=== PATIENT | female | born 1935 | race Caucasian/White ===

== ENCOUNTER → 2016-12-01 | Outpatient (CLI) | payer MEDICARE ==
[~2016-12-01] MED LIST: ALBUTEROL17 GM INH; ALPRAZOLAM0.5 MG PO; AMLODIPINE-OLM1 EACH PO; CLIMARA 0.1 MG0.1 MG EXT; ESCITALOPRAM OX10 MG PO; ESOMEPRAZOLE MA40 MG PO; GABAPENTIN300 MG PO; LISINOPRIL20 MG PO; MULTI VITAMIN1 EACH PO; NEURONTIN100 MG PO; ROPINIROLE HC0.25 MG PO; ROPINIROLE HCL0.5 MG PO; TOPROL XL100 MG PO; TRAMADOL HCL50 M1 PO; TRAMADOL HCL50 M2 PO; VESICARE PO; VIVELLE-DO1 PATCH.B2 TD; VOLTAREN75 MG PO
--- NOTE | ~2016-12-01 | MR165 ---
[facility] A Service of [facility] RADIOLOGY TEXT RESULTS PATIENT: GUILLERMO CALHOUN LOCATION: [facility] : 35 UNIT #: [id number] AGE: [address]: Neel Willoughby MD SEX: F ORDER DR: [id number] [facility] [address] [place], [place] [address] [id number] O MR#: [id number] Acc #: [id number] NAME: GUILLERMO CALHOUN. : 1935 SEX: F STUDY DATE/TIME: 12/01/2016 8:22 UNIT: [facility] ROOM: STUDY DESCRIPTION: MR Shoulder Wo Contrast Rt Attending Physician: Neel Willoughby M.D. Referring Physician: Neel Willoughby M.D. Ordering Physician: Neel Willoughby M.D. Primary Care Physician: Sarahy Wray M.D. MRI CENTER REPORT This report is preliminary unless electronic signature is present. EXAM MRI right shoulder, 12/01/2016. COMPARISON STUDIES Right shoulder radiograph, 02/06/2016. HISTORY Order states right shoulder osteoarthritis, evaluate rotator cuff. History sheet states chronic right shoulder pain for 10 years. Injections for approximately 3 months helped the pain. Schedule for surgery in about a week to place a eva in the humerus. Opposite left shoulder humerus surgery 9 years ago. No right shoulder surgery reported. FINDINGS There is minimal acromioclavicular joint arthrosis with superior capsular ligamentous thickening and osteophyte formation. Coracoacromial and coracoclavicular ligaments are intact. Small subcortical cyst in the lateral acromion is noted. There is a minimal subscapularis tendinosis without a tear. Rotator cuff is otherwise intact. The predominant abnormality is advanced glenohumeral arthrosis with bone on bone appearance, extensive grade 4 chondromalacia, subarticular marrow edema, and minimal subarticular cyst formation. There is a minimal effusion without sizable loose body. There is a paralabral cyst along the anteroinferior quadrant, likely due to underlying labral degeneration or tear. There is no marrow lesion, fracture, or muscle atrophy. IMPRESSION 1. Advanced glenohumeral arthrosis detailed above. 2. Rotator cuff demonstrates no tear. There is minimal subscapularis STS. [facility] A Service of [facility] RADIOLOGY TEXT RESULTS PATIENT: GUILLERMO CALHOUN LOCATION: [facility] : 35 UNIT #: [id number] AGE: [address]: Neel Willoughby MD SEX: F ORDER DR: tendinosis. 3. Paralabral cyst anteroinferior glenoid quadrant likely due to the underlying labral tear or degeneration. 4. AC joint arthrosis. Dictated by... Anali Gonzalez M.D. THIS IS AN ELECTRONICALLY VERIFIED REPORT Anali Gonzalez M.D. at 12/02/2016 8:11 AM JORDAN/cheryl TD: 12/01/2016 12:16 JOB #: [id number] MRI CENTER REPORT Page 1 of 1 COPY
[2016-12-01 09:27] LABS: HEMATOCRIT 43.5 % (35.0-45.0); HEMOGLOBIN 14.3 gm/dL (12.0-16.0); MEAN CELL VOLUME 88.5 FL (83-96); MEAN CORPUSCULAR HGB CONC 32.8 g/dL (30-36); MEAN PLATELET VOLUME 7.5 FL (6.5-11.5); RED BLOOD COUNT 4.92 X10e (3.90-5.30); RED CELL DISTRIBUTION WIDTH 14.2 % (11.0-15.5)
[2016-12-01 09:32] LABS: URINE APPEARANCE CLEAR; URINE BILIRUBIN NEG (NEG); URINE BLOOD NEG (NEG); URINE COLOR DK YELLOW; URINE GLUCOSE NEG (NEG); URINE KETONE NEG (NEG); URINE LEUKOCYTE ESTERASE TRACE (NEG); URINE NITRATE NEG (NEG); URINE PROTEIN NEG (NEG); URINE SPECIFIC GRAVITY 1.013 (1.003-1.035)
[2016-12-01 09:35] LABS: CULTURE INDICATED? YES; URINE BACTERIA AUWI 1+ (NEGATIVE); URINE SQUAMOUS EPITHELIAL CELL FEW /[HPF]
[2016-12-01 09:44] LABS: URINE SOURCE CLEAN CATCH
[2016-12-01 10:18] LABS: GLOM FILT RATE Estimated 52.8 mL/min (>60); POTASSIUM 4.3 mmol/L (3.5-5.1)
== END | disposition home or self-care (01) ==
LOC: CMRI 07:46 → CAMB 11:00
PROVIDERS: Orthopaedic Surgery
DX: Z01.818 Encounter for other preprocedural examination (principal); M19.011 Primary osteoarthritis, right shoulder; M75.81 Other shoulder lesions, right shoulder; S43.431A Superior glenoid labrum lesion of right shoulder, initial encounter
CPT/HCPCS: 36415; 73221; 80048; 81003; 85027; 87070; 87086

== ENCOUNTER 2016-12-08 06:12 | Inpatient (IN) | payer MEDICARE ==
--- NOTE | ~2016-12-08 | OR ---
Unit #: [id number] #: [id number] Patient: GUILLERMO MSAT [id number] [address] [place], [place] [address] [id number] I MR#: [id number] NAME: GUILLERMO MAST ROOM: [facility] Date of Procedure: 12/08/2016 Admission Date: 12/08/2016 Surgeon: Neel Willoughby M.D. : 1935 Attending Physician: Neel Willoughby M.D. OPERATIVE REPORT PREOPERATIVE DIAGNOSIS Right shoulder osteoarthritis. POSTOPERATIVE DIAGNOSES 1. Right shoulder osteoarthritis. 2. Right shoulder biceps tenosynovitis. PROCEDURES PERFORMED 1. Right reverse shoulder arthroplasty. 2. Right shoulder biceps tenodesis. IMPLANTS 1. DJO Surgical size 8 press-fit, AltiVate stem with a 32, neutral humeral socket liner. 2. DJO Surgical P2 baseplate with a 32, -4 glenosphere. SYNCHRO ASSEMBLER Amanda Hanson APRN, TOMOGRAPHIC TECH. ANESTHESIA General. ESTIMATED BLOOD LOSS 200 mL. DRAINS Medium Hemovac x1. SPECIMENS Humeral head to Pathology. COMPLICATIONS None apparent. INDICATIONS FOR PROCEDURE Ms. Mast is an 81-year-old female with right shoulder glenohumeral joint osteoarthritis. She has an intact rotator cuff. We have discussed reverse shoulder arthroplasty given her age and history of need for revision of prior arthroplasty on the left to reverse. She would like to avoid any potential for revision shoulder operation. We discussed that a total shoulder may be at risk for rotator cuff failure and need for future reoperation and anticipate that reverse shoulder arthroplasty should last Unit #: [id number] #: [id number] Patient: GUILLERMO MAST her likely her lifetime. She does understand however that she may outlive her prosthesis and she still may require revision at some point in the future. She elected to proceed with a right reverse shoulder arthroplasty. DESCRIPTION OF PROCEDURE The patient was identified in the preoperative holding area. The operative site was marked. A regional anesthetic block was performed. The patient was brought to the operating room and placed supine on the operating table. A general anesthetic was induced. The patient was positioned into the beach-chair position. The right upper extremity was then prepped and draped in sterile fashion. A standard deltopectoral incision was made. Dissection was carried down through the subcutaneous tissues. The cephalic vein was retracted medially with the pectoralis major muscle. The subdeltoid space was developed. The rotator cuff was intact. The biceps tendon sheath was opened. There was proliferative tenosynovium around the biceps and biceps tenodesis was indicated. A biceps tenodesis was performed in a soft tissue fashion utilizing a locking #2 FiberWire suture to the superior border of the pectoralis. The proximal extent of the biceps was excised. The subscapularis was removed in a direct subscapularis peel. The shoulder was then dislocated anteriorly. The humeral head osteophytes were removed with an osteotome and rongeur. A humeral head osteotomy was then performed of an extramedullary cutting guide in 30 degrees of retroversion. The humerus was then subluxed posteriorly. We had easy access to her glenoid without any significant soft tissue releases. The labrum was released and again we had fairly straightforward in on exposure of the scapula. We drilled the centering hole followed by insertion of the reaming tap. We reamed down to bleeding subchondral bone just beneath the subchondral plate. The real baseplate was then inserted and achieved excellent purchase in the scapula. We then placed 4 peripheral locking screws, which included 26 superiorly and inferiorly and 14 anteriorly and posteriorly. The real 32, -4 glenosphere was then inserted. The set screw was secured. The humerus was then brought back into the operative field anteriorly. A freehand ball reaming technique was performed of the proximal humerus. We sized the canal to a size 8. We then opened a size 8 stem. Three suture holes were drilled in the bicipital groove for passage of 3 FiberTape sutures. The stem was then passed down the humeral canal with the sutures looped around the stem. This achieved good press-fit in the humerus. We trialed a 32, neutral humeral socket liner and were satisfied with this. The real polyethylene liner was then impacted in place and the shoulder was reduced. The 3 FiberTape sutures were then passed through the subscapularis. These were then tied in a simple stitch fashion. A FiberWire Tagging suture which was in the subscapularis was passed back through soft tissue just lateral to the bicipital groove in a [id number] fashion to further reinforce the repair. The lateral humeral offset was in a near anatomic position. The rotator interval was lying in an anatomic position as well and was amenable to closure. We further reinforced the repair by closure of the lateral extent of the rotator interval to the supraspinatus. The arm was taken through range of motion and the shoulder was stable. The wound was irrigated with dilute Betadine solution followed by pulsatile lavage. A drain was placed in the subdeltoid space. The wound was closed in a layered fashion with 0 Vicryl, 2-0 Vicryl, and 4-0 Monocryl. Steri-Strips and sterile dressings were applied. Unit #: [id number] #: [id number] Patient: GUILLERMO MAST DISPOSITION Stable to the recovery room. Dictated by... Emmanuelle Cadena/kerry TD: 12/09/2016 00:06 JOB #: [id number] OPERATIVE REPORT Page 1 of 1 X Neel Willoughby MD X PROCEDURE OPERATIVE NOTE
--- NOTE | ~2016-12-08 | DS ---
Unit #: [id number] #: [id number] Patient: GUILLERMO MAST [id number] [address] [place], [place] [address] [id number] I MR#: [id number] NAME: GUILLERMO MAST. ROOM: 453 Age: 81 Sex: F Admission Date: 12/08/2016 : 1935 Discharge Date: 12/11/2016 Attending Physician: Neel Willoughby M.D. Primary Care Physician: Generic Doctor Not In System DISCHARGE SUMMARY ADMISSION DIAGNOSIS Right shoulder osteoarthritis. DISCHARGE DIAGNOSIS Right shoulder osteoarthritis. SECONDARY DIAGNOSES 1. Chronic obstructive pulmonary disease. 2. Anxiety/depressive disorder. 3. Restless leg syndrome. 4. Hypertension. 5. Gastroesophageal reflux disease. PROCEDURE PERFORMED Right reverse shoulder arthroplasty. ADMISSION HISTORY Briefly, Ms. Mast is an 81-year-old female who is well known to me for right glenohumeral joint osteoarthritis. She has failed conservative management and presented for definitive surgical care. HOSPITAL COURSE The patient was taken to the operating room on the day of admission for right reverse shoulder arthroplasty. For full details, please see dictated operative note. Surgical procedure was unremarkable. The patient was admitted to a private range of motion on the orthopedic surgery floor. The night of surgery was unremarkable and her pain well controlled with her preoperative interscalene nerve block. As the block wore off she was transitioned to an oral pain medication regimen with IV pain medicine as needed. Her pain is now well controlled on postoperative day number three. She is now up and ambulatory in the hallway. She has resumed a regular diet. She has had no medical or postsurgical complications. Her wound is clean and dry with no drainage. Her hemoglobin is stable. At the current time she is medically stable for transfer to rehab facility as she lives independently and will have difficulty with her usual ADLs, given her acute postoperative status in the right upper extremity. DISCHARGE INSTRUCTIONS 1. The patient is to have a daily dry dressing change to the right upper extremity. 2. She may shower, but should avoid getting the surgical site itself wet Unit #: [id number] #: [id number] Patient: GUILLERMO MAST or submerging the shoulder under water. She may shower with an occlusive dressing in place and then pat the area dry and apply a new bandage. 3. She should have range of motion to the elbow, wrist and hand and pendulums to the shoulder. 4. She may be up and ambulatory as tolerated. 5. She may remove the neck strap and sling while at rest in bed. DISCHARGE MEDICATIONS 1. Albuterol inhaler as needed. 2. Gabapentin 100 mg p.o. t.i.d. p.r.n. 3. Citalopram 10 mg daily and p.r.n. anxiety. 4. Ropinirole 0.5 mg p.o. at nighttime. 5. Toprol XL 100 mg p.o. daily. 6. Amlodipine/olmesartan 5/20 mg 1 tablet p.o. daily. 7. VESIcare 5 mg p.o. daily. 8. Tramadol 50 mg p.o. q.6 h. p.r.n. mild pain. 9. Esomeprazole p.o. daily. 10. Percocet 5/325 mg 1 or 2 tablets p.o. p.r.n. moderate to severe pain. FOLLOWUP She will follow up in approximately two weeks time as currently scheduled. Dictated by... Neel Willoughby M.D. AB/anton TD: 12/11/2016 09:35 JOB #: [id number] DISCHARGE SUMMARY Page 1 of 1 X Neel Willoughby MD DISCHARGE SUMMARY
--- NOTE | ~2016-12-08 | CR230 ---
[facility] A Service [facility] RADIOLOGY TEXT RESULTS PATIENT: GUILLERMO CALHOUN LOCATION: [facility] : 35 UNIT #: [id number] AGE: [address]: Neel Willoughby MD SEX: F ORDER DR: [id number] [address] [id number] [facility]. [place], [place] [address] [id number] MR#: [id number] Acc #: [id number] NAME: GUILLERMO CALHOUN. : 1935 SEX: F STUDY DATE/TIME: 12/08/2016 11:34 UNIT: [facility] ROOM: [facility] STUDY DESCRIPTION: CR Shoulder Min 2 View Rt Attending Physician: Neel Willoughby M.D. Ordering Physician: Neel Willoughby M.D. Primary Care Physician: Dawna Not Listed MEDICAL IMAGING REPORT This report is preliminary unless electronic signature is present EXAM Right shoulder, 12/08/2016, 1134 hours. CLINICAL HISTORY Postop right total shoulder replacement. COMPARISON Shoulder MRI, 12/01/2016. FINDINGS 2 views of the right shoulder demonstrate postop change of shoulder replacement with a screwed ball component at the glenoid and a noncemented cup component at the humerus. The alignment is anatomic. No fracture seen. A surgical drain is present. IMPRESSION Postop right shoulder replacement with a screwed glenoid component and a long-stem cup component. noncemented in the humerus. Alignment is anatomic. No fracture seen. Dictated by... Ewelina Cee M.D. THIS IS AN ELECTRONICALLY VERIFIED REPORT Ewelina Cee M.D. at 12/09/2016 9:30 AM MAYCO/cheryl TD: 12/08/2016 14:48 JOB #: [id number] MEDICAL IMAGING REPORT [facility] A Service [facility] RADIOLOGY TEXT RESULTS PATIENT: GUILLERMO CALHOUN LOCATION: [facility] : 35 UNIT #: [id number] AGE: [address]: Neel Willoughby MD SEX: F ORDER DR: Page 1 of 1 COPY
[2016-12-09 04:19] LABS: BASOPHIL# 0.1 X10e3 (0-0.3); BASOPHIL% 0.7 % (0-2.5); DIFF IND NO; EOSINOPHIL% 0.3 % (0.0-7.0); HEMATOCRIT 37.4 % (35.0-45.0); HEMOGLOBIN 12.2 gm/dL (12.0-16.0); LYMPHOCYTE# 1.7 X10e3 (1.0-3.5); LYMPHOCYTE% 17.6 % (17.0-45.0); MEAN CELL VOLUME 88.8 FL (83-96); MEAN CORPUSCULAR HGB CONC 32.7 g/dL (30-36); MONOCYTE# 0.8 X10e3 (0-1.0); MONOCYTE% 8.4 % (3.0-12.0); PLATELET COUNT 202 X10e3 (140-420); RED BLOOD COUNT 4.21 X10e (3.90-5.30); RED CELL DISTRIBUTION WIDTH 14.2 % (11.0-15.5); WHITE BLOOD COUNT 9.5 X10e3 (4.0-10.5)
[2016-12-10 03:17] LABS: BASOPHIL# 0.1 X10e3 (0-0.3); BASOPHIL% 1.2 % (0-2.5); EOSINOPHIL# 0.1 X10e3 (0-0.7); EOSINOPHIL% 1.2 % (0.0-7.0); HEMATOCRIT 35.5 % (35.0-45.0); HEMOGLOBIN 11.6 gm/dL (12.0-16.0); LYMPHOCYTE# 2.1 X10e3 (1.0-3.5); LYMPHOCYTE% 24.9 % (17.0-45.0); MEAN CELL VOLUME 89.8 FL (83-96); MEAN CORPUSCULAR HEMOGLOBIN 29.2 PG (28-34); MEAN CORPUSCULAR HGB CONC 32.6 g/dL (30-36); MEAN PLATELET VOLUME 7.9 FL (6.5-11.5); MONOCYTE% 11.6 % (3.0-12.0); NEUTROPHIL# 5.3 X10e3 (1.5-7.1); NEUTROPHIL% 61.1 % (40-75); PLATELET COUNT 179 X10e3 (140-420); RED BLOOD COUNT 3.95 X10e (3.90-5.30); WHITE BLOOD COUNT 8.6 X10e3 (4.0-10.5)
[2016-12-10 03:18] LABS: DIFF IND NO
[2017-03-23] MEDS ORDERED: VOLTAREN75 MG PO (13:15)
[2017-03-23] MEDS ORDERED: MULTI VITAMIN1 EACH PO (13:15)
== END 2016-12-11 13:52 | DRG 483 ==
LOC: CSUR 06:12 → CPACUOF 08:30 → CSUR 08:30 → CPACUOF 09:24 → CSUR 11:00 → CPACUOF 11:58 → C4B 11:58
PROVIDERS: Orthopaedic Surgery
PROC: 0RRJ00Z Replacement of Right Shoulder Joint with Reverse Ball and Socket Synthetic Substitute, Open Approach (ICD-10-PCS; principal; 2016-12-08 08:30)
DX: M19.011 Primary osteoarthritis, right shoulder (principal); J44.9 Chronic obstructive pulmonary disease, unspecified; M65.811 Other synovitis and tenosynovitis, right shoulder; G25.81 Restless legs syndrome; F41.9 Anxiety disorder, unspecified; F32.9 Major depressive disorder, single episode, unspecified; I10 Essential (primary) hypertension; K21.9 Gastro-esophageal reflux disease without esophagitis; Z90.710 Acquired absence of both cervix and uterus; G89.29 Other chronic pain; M41.9 Scoliosis, unspecified
CPT/HCPCS: 73030; 82947; 85025; 94010; 94640; 94760; 97110; 97116; 97161; 97530; C1713; C1776; G8978-GP; G8979-GP; J0131; J0330; J0690; J2250; J2270; J2405; J2710; J2795; J3010

== ENCOUNTER → 2017-03-24 | Day surgery (SDC) | payer MEDICARE ==
--- NOTE | ~2017-03-24 | OR ---
Unit #: [id number] #: [id number] Patient: GUILLERMO CALHOUN [id number] [address] [place], [place] [address] [id number] O MR#: [id number] NAME: GUILLERMO CALHOUN ROOM: Date of Procedure: 03/24/2017 Admission Date: 03/24/2017 Surgeon: Tc Arana M.D. : 1935 Attending Physician: Tc Arana M.D. Referring Physician: Tc Arana M.D. Primary Care Physician: Sarahy Wray M.D. OPERATIVE REPORT PREOPERATIVE DIAGNOSES Back pain, radiculopathy, spinal stenosis, and degenerative disk disease. POSTOPERATIVE DIAGNOSES Back pain, radiculopathy, spinal stenosis, and degenerative disk disease. PROCEDURES PERFORMED Lumbar epidural steroid injection with intravenous sedation and fluoroscopic guidance for needle localization. INDICATIONS FOR PROCEDURE The patient is an 82-year-old female with return of back and bilateral lower extremity pains due to multilevel multifactorial nonsurgical degenerative disk and spine disease. The patient had been treated with epidural steroids while living in [place]. She did fairly well with lumbar approach. More recent, she had a trial of caudal epidurals, which were not helpful. She is poorly tolerant of analgesic medications. Based on prior history, pathology, symptomatology, and treatment options, plan is to treat a trial of epidural via lumbar approach. Risks and benefits were all reviewed. DESCRIPTION OF PROCEDURE The patient was placed in a seated position. Standard monitors were applied. 1 mg of Versed were given for sedation and anxiolysis, which were adequate. Vital signs remained stable. Sterile prep and drape then of the lumbar area was performed. The skin then at the L4-L5 level was localized with 1% lidocaine. An 18-gauge Hustead needle was then advanced via loss of resistance technique and fluoroscopic guidance in toward the epidural space. The patient did not complain of pain or paresthesia during needle advancement. After confirming proper positioning with fluoroscopy and radiographic contrast, 80 mg of Depo-Medrol and 4 mL of 0.125% bupivacaine were deposited. The patient tolerated the entire procedure well and was discharged to the recovery room in stable condition. Dictated by... Tc Arana M.D. LHErika/kerry Unit #: [id number] #: [id number] Patient: GUILLERMO CALHOUN TD: 03/25/2017 07:22 JOB #: [id number] OPERATIVE REPORT Page 1 of 1 X Tc Arana MD X PROCEDURE OPERATIVE NOTE
== END | disposition home or self-care (01) ==
LOC: CCSC 09:35
DX: M51.16 Intervertebral disc disorders with radiculopathy, lumbar region (principal); M48.06 Spinal stenosis, lumbar region; M19.90 Unspecified osteoarthritis, unspecified site; I10 Essential (primary) hypertension; F32.9 Major depressive disorder, single episode, unspecified; Z79.899 Other long term (current) drug therapy
CPT/HCPCS: J1040; J2250

== ENCOUNTER → 2017-03-31 | Day surgery (SDC) | payer MEDICARE ==
--- NOTE | ~2017-03-31 | OR ---
Unit #: [id number] #: [id number] Patient: GUILLERMO CALHOUN [id number] [address] [place], [place] [address] [id number] O MR#: [id number] NAME: GUILLERMO CALHOUN ROOM: Date of Procedure: 03/31/2017 Admission Date: 03/31/2017 Surgeon: Tc Arana M.D. : 1935 Attending Physician: Tc Arana M.D. Primary Care Physician: Sarahy Wray M.D. OPERATIVE REPORT PREOPERATIVE DIAGNOSES Back pain, degenerative disk disease, radiculopathy, spinal stenosis. POSTOPERATIVE DIAGNOSES Back pain, degenerative disk disease, radiculopathy, spinal stenosis. PROCEDURE PERFORMED Lumbar epidural steroid injection with intravenous sedation and fluoroscopic guidance for needle localization. INDICATIONS FOR PROCEDURE The patient is an 82-year-old female with back and bilateral lower extremity pain felt mostly due to significant degenerative disk disease and spinal stenosis. She failed to settle with conservative measures. Plan is to give a trial of epidural steroid injection. Initial injection resulted in tremendous settling of her symptom complex. Based on a good partial initial response, we are going to proceed with a second injection today. DESCRIPTION OF PROCEDURE The patient was placed in a seated position. Standard monitors were applied. 1 mg of versed was given for sedation and anxiolysis, which were adequate. Vital signs remained stable. Sterile prep and drape then of the lumbar area was performed. The skin then at the L4-L5 level was localized with 1% lidocaine. An 18-gauge Hustead needle was then advanced via loss of resistance technique and fluoroscopic guidance in toward the epidural space. After confirming proper positioning with fluoroscopy and radiographic contrast, 80 mg of Depo-Medrol and 4 mL of 0.125% bupivacaine were deposited. The patient tolerated the procedure otherwise well and was discharged to recovery room in stable condition. Dictated by... Emmanuelle Hughes/kerry TD: 03/31/2017 12:21 JOB #: [id number] Unit #: [id number] #: [id number] Patient: GUILLERMO CALHOUN OPERATIVE REPORT Page 1 of 1 X Tc Arana MD X PROCEDURE OPERATIVE NOTE
== END | disposition home or self-care (01) ==
LOC: CCSC 09:22
DX: M51.16 Intervertebral disc disorders with radiculopathy, lumbar region (principal); M48.06 Spinal stenosis, lumbar region; I10 Essential (primary) hypertension; M19.90 Unspecified osteoarthritis, unspecified site; F32.9 Major depressive disorder, single episode, unspecified; Z79.899 Other long term (current) drug therapy
CPT/HCPCS: J1040; J2250